=== PATIENT | male | born 1995 | race Caucasian/White ===

== ENCOUNTER 2017-03-14 22:43 | Emergency (ER) | payer BC ==
[2017-03-14] MEDS ORDERED: Sodium Chloride 0.9% 10 ML Syringe FLUSH PRN (23:14)
[2017-03-14] MEDS ORDERED: Sodium Chloride 0.9% 2.5 ML Syringe FLUSH PRN (23:14)
[2017-03-14] MEDS ORDERED: Ketorolac 30 MG/ML SDV IVPUSH ONE (23:15)
--- NOTE | 2017-03-14 23:18 | EDM.PDOC ---
ED HPI GENERAL MEDICAL PROBLEM - General Chief Complaint: General Stated Complaint: TOOTH PAIN/RT EYE Time Seen by Provider: 03/14/17 23:03 - History of Present Illness INITIAL COMMENTS - FREE TEXT/NARRATIVE: HISTORY AND PHYSICAL: History of present illness: The patient is a healthy 21-year-old male who presents with complaints of persistent pain at his right upper tooth area and new swelling to his right eye area. The patient has seen the dentist the last 2 days and was giving an antibiotic rinse that he is using and they did x-rays and they were concerned about the right central incisor. The patient is also currently on antibiotics that he started today and has only taken one dose which he received from Dr. Jass Grant --- although he did not see the physician they were called in for him. The patient presents tonight saying that he has had the discomfort for several days, 3 days, more in the tooth and now he has the swelling of his periorbital area and he is concerned. He has had no fever chills cough chest pain or shortness of breath no nausea no vomiting. He has no difficulty eating and drinking and he has no neck pain. No visual changes in his eye and no gross drainage from the eye. He does not wear glasses or contact lenses. He doesn't have a foreign body sensation in his eye. He does not have any headache whatsoever just pain at the tooth area which she feels is now behind his right eye. Review of systems: As per history of present illness and below otherwise all systems reviewed and negative. Past medical history: As per history of present illness and as reviewed below otherwise noncontributory. Surgical history: As per history of present illness and as reviewed below otherwise noncontributory. Social history: No reported history of drug or alcohol abuse. Family history: As per history of present illness and as reviewed below otherwise noncontributory. Physical exam: Gen.: Well-developed well-nourished man who is nontoxic and vital signs of been reviewed by me. HEENT: Atraumatic, normocephalic, pupils reactive, EOMs are intact, he is not photophobic, his sclera is injected on the right, negative for conjunctival pallor or scleral icterus, mucous membranes moist, throat clear, neck supple, nontender, trachea midline. There is no cervical adenopathy or nuchal rigidity. There are no exudates and the uvula is midline but the soft palate is grossly erythematous with a few punctate ulcerations seen. Speech is intact. There is no gross to the DKA or caries seen but there is some minimal tenderness of the gum area surrounding the right central incisor without fluctuance swelling or abnormalities. Lungs: Clear to auscultation, breath sounds equal bilaterally, chest nontender. Heart: S1S2, regular, rate and rhythm no overt murmurs Abdomen: Soft, nondistended, nontender. NABS Negative for costovertebral tenderness. Genitourinary: Deferred. Rectal: Deferred. Extremities: Atraumatic, negative for cords or calf pain. Neurovascular unremarkable. Neuro: Awake, alert, oriented. Cranial nerves II through XII unremarkable. Cerebellum unremarkable. Motor and sensory unremarkable throughout. Exam nonfocal. Diagnostics: CBC CMP lactic acid visual acuity CT scan of the maxillofacial area Visual acuity was 20/25 in each eye individually as well as together. Therapeutics: IV, Toradol Rocephin I rediscussed all testing results with the patient and friend at bedside. The patient insists that he had no trauma to his face he did not have any bites or anything in the area of the right zygomatic region he is aware there is no evidence of any abscess or fluid collection and that that would be treated with antibiotics and close follow-up. The patient is unsure of what antibiotic he is on at home so I've advised him to take a prescription for Augmentin that they have written him and if the antibiotic at home is not Augmentin that he needs to fill it and start taking it. I have also given him [facility] for tobramycin ophthalmic drops and tramadol for pain. I advised very close follow-up with either Dr. Grant in the clinic or one of our physicians and reasons to return to the ED. I also advised ice to the area. I will give one dose of Rocephin here Impression: Right facial cellulitis Definitive disposition and diagnosis as appropriate pending reevaluation and review of above. Right Tooth/Teeth Pain Score (Numeric/FACES): 8 - Related Data Allergies Allergy/AdvReac Type Severity Reaction Status Date / Time No Known Allergies Allergy Verified 03/14/17 22:57 Home Meds: Home Meds . [No Known Home Meds] 01/08/16 [History] Past Medical History - Past Health History Medical/Surgical History: Denies Medical/Surgical History Social & Family History - Family History Family Medical History: Noncontributory - Tobacco Use Smoking Status *Q: Never Smoker Second Hand Smoke Exposure: No - Caffeine Use Caffeine Use: Reports: Soda Caffeine Use Comment: 1drink/day - Recreational Drug Use Recreational Drug Use: No ED ROS GENERAL - Review of Systems Review Of Systems: ROS reveals no pertinent complaints other than HPI. ED EXAM, GENERAL - Physical Exam Exam: See Below (See dictation) Course - Vital Signs Last Recorded V/S: Last Vital Signs Temp 36.7 C 03/14/17 22:54 Pulse 87 03/14/17 22:54 Resp 18 03/14/17 22:54 BP 136/87 03/14/17 22:54 Pulse Ox 97 03/14/17 22:54 - Orders/Labs/Meds Orders: Active Orders 24 hr Category Date Time Status Communication Order [RC] STAT Care 03/14/17 23:11 Active Max Facial Sinus w Cont [CT] Stat Exams 03/14/17 01:42 Taken Sodium Chloride 0.9% [Saline Flush] Med 03/14/17 23:14 Active 10 ml FLUSH ASDIRECTED PRN Sodium Chloride 0.9% [Saline Flush] Med 03/14/17 23:14 Active 2.5 ml FLUSH ASDIRECTED PRN cefTRIAXone [Rocephin in Dextrose,Iso-Osm 1 GM/50 ML] 1 Med 03/15/17 01:53 Ordered gm Premix Bag 1 bag IV ONETIME Saline Lock Insert [OM.PC] Stat Oth 03/14/17 23:12 Ordered Medication Orders Ceftriaxone Sodium/Dextrose 1 (gm/ Premix) 50 mls @ 100 mls/hr IV ONETIME ONE Stop: 03/15/17 02:22 Sodium Chloride (Saline Flush) 10 ml FLUSH ASDIRECTED PRN PRN Reason: Keep Vein Open Sodium Chloride (Saline Flush) 2.5 ml FLUSH ASDIRECTED PRN PRN Reason: Keep Vein Open Labs: Laboratory Tests 03/14/17 03/14/17 03/14/17 Range/Units 23:44 23:44 23:44 WBC 6.32 (4.0-11.0) K/uL RBC 4.95 (4.50-5.90) M/uL Hgb 14.7 (13.0-17.0) g/dL Hct 42.8 (38.0-50.0) % MCV 86.5 (80.0-98.0) fL MCH 29.7 (27.0-32.0) pg MCHC 34.3 (31.0-37.0) g/dL RDW Std Deviation 40.7 (28.0-62.0) fl RDW Coeff of Jyoti 13 (11.0-15.0) % Plt Count 160 (150-400) K/uL MPV 10.40 (7.40-12.00) fL Neut % (Auto) 66.2 (48.0-80.0) % Lymph % (Auto) 21.8 (16.0-40.0) % [place] % (Auto) 9.3 (0.0-15.0) % Eos % (Auto) 2.2 (0.0-7.0) % Baso % (Auto) 0.5 (0.0-1.5) % Neut # (Auto) 4.2 (1.4-5.7) K/uL Lymph # (Auto) 1.4 (0.6-2.4) K/uL [place] # (Auto) 0.6 (0.0-0.8) K/uL Eos # (Auto) 0.1 (0.0-0.7) K/uL Baso # (Auto) 0.0 (0.0-0.1) K/uL Nucleated RBC % 0.0 /100WBC Nucleated RBCs # 0 K/uL Lactate 0.7 (0.20-2.00) mmol/L Sodium 139 (136-146) mmol/L Potassium 3.7 (3.5-5.1) mmol/L Chloride 104 (98-110) mmol/L Carbon Dioxide 27 (21-31) mmol/L BUN 12 (6.0-23.0) mg/dL Creatinine 1.0 (0.6-1.5) mg/dL Est Cr Clr Drug Dosing TNP Estimated GFR (MDRD) > 60.0 ml/min Glucose 121 H (60-110) mg/dL Calcium 9.4 (8.8-10.8) mg/dL Total Bilirubin 0.6 (0.1-1.5) mg/dL AST 25 (5-40) IU/L ALT 23 (8-54) IU/L Alkaline Phosphatase 61 L (125-750) Total Protein 6.9 (6.0-8.0) g/dL Albumin 4.3 (3.5-5.0) g/dL Globulin 2.6 (2.0-3.5) g/dL Albumin/Globulin Ratio 1.7 (1.3-2.8) Meds: Medications Generic Name Dose Route Start Last Admin Trade Name Freq PRN Reason Stop Dose Admin Ceftriaxone Sodium/Dextrose 1 50 mls @ 100 mls/hr 03/15/17 01:53 gm/ Premix IV 03/15/17 02:22 ONETIME ONE Sodium Chloride 10 ml 03/14/17 23:14 Saline Flush FLUSH ASDIRECTED PRN Keep Vein Open Sodium Chloride 2.5 ml 03/14/17 23:14 Saline Flush FLUSH ASDIRECTED PRN Keep Vein Open Discontinued Medications Generic Name Dose Route Start Last Admin Trade Name Freq PRN Reason Stop Dose Admin Iopamidol 75 ml 03/15/17 01:45 03/15/17 01:46 Isovue Multipack-370 (76%) IVPUSH 03/15/17 01:46 75 ml ONETIME STA Administration Ketorolac Tromethamine 30 mg 03/14/17 23:15 03/14/17 23:28 Toradol IVPUSH 03/14/17 23:16 30 mg ONETIME ONE Administration Departure - Departure Time of Disposition: 01:58 Disposition: Home, Self-Care 01 Condition: Good Clinical Impression: Facial cellulitis - Discharge Information Forms: ED Department Discharge Additional Instructions: The following information is given to patients seen in the emergency department who are being discharged to home. This information is to outline your options for follow-up care. We provide all patients seen in our emergency department with a follow-up referral. The need for follow-up, as well as the timing and circumstances, are variable depending upon the specifics of your emergency department visit. If you don't have a primary care physician on staff, we will provide you with a referral. We always advise you to contact your personal physician following an emergency department visit to inform them of the circumstance of the visit and for follow-up with them and/or the need for any referrals to a consulting specialist. The emergency department will also refer you to a specialist when appropriate. This referral assures that you have the opportunity for followup care with a specialist. All of these measure are taken in an effort to provide you with optimal care, which includes your followup. Under all circumstances we always encourage you to contact your private physician who remains a resource for coordinating your care. When calling for followup care, please make the office aware that this follow-up is from your recent emergency room visit. If for any reason you are refused follow-up, please contact the [facility] emergency department at and ask to speak to the emergency department charge nurse. [address] [place] [address] [facility] Primary care- Internal Medicine and Family [address] [address] Use ice to face to reduce swelling and use medications [facility] --- tobramycin eyedrops and tramadol for pain. He may also use [id number] Tylenol or ibuprofen for pain. Please go home and check the antibiotics you have prescribed by Dr. Grant and if it is not Augmentin please fill the prescription your given and start the new antibiotic. If the prescription you have at home is Augmentin start the prescription I gave you here and continue with that antibiotic. Please call and schedule follow-up at either [facility] or our clinic Friday or Friday and return here as needed and as discussed. - My Orders Last 24 Hours: My Active Orders 03/14/17 01:42 Max Facial Sinus w Cont [CT] Stat 03/14/17 23:11 Communication Order [RC] STAT 03/14/17 23:12 Saline Lock Insert [OM.PC] Stat 03/14/17 23:14 Sodium Chloride 0.9% [Saline Flush] 10 ml FLUSH ASDIRECTED PRN Sodium Chloride 0.9% [Saline Flush] 2.5 ml FLUSH ASDIRECTED PRN 03/15/17 01:53 cefTRIAXone [Rocephin in Dextrose,Iso-Osm 1 GM/50 ML] 1 gm Premix Bag 1 bag IV ONETIME - Assessment/Plan Last 24 Hours: My Active Orders 03/14/17 01:42 Max Facial Sinus w Cont [CT] Stat 03/14/17 23:11 Communication Order [RC] STAT 03/14/17 23:12 Saline Lock Insert [OM.PC] Stat 03/14/17 23:14 Sodium Chloride 0.9% [Saline Flush] 10 ml FLUSH ASDIRECTED PRN Sodium Chloride 0.9% [Saline Flush] 2.5 ml FLUSH ASDIRECTED PRN 03/15/17 01:53 cefTRIAXone [Rocephin in Dextrose,Iso-Osm 1 GM/50 ML] 1 gm Premix Bag 1 bag IV ONETIME
[2017-03-15 00:15] LABS: CHLORIDE,CL 104 mmol/L (98-110); SODIUM,NA 139 mmol/L (136-146)
[2017-03-15] MEDS ORDERED: Iopamidol 755 MG/ML 500 ML Multipack Bottle IVPUSH STA (01:45)
[2017-03-15] MEDS ORDERED: cefTRIAXone 1 GM in Premix Bag 1 BAG IV ONE (01:53)
[2017-03-15 02:49] VITALS: BP 119/77
--- NOTE | 2017-03-17 10:51 | CT ---
EXAM DATE: 03/14/17 PATIENT'S AGE: 21 Patient: NAUN BATEMAN Facility: [place], [place] Site . Site : 1995 Study: CT Facial [id number]/[id number] 1:12:49 AM Ordering Physician: Alon Fay Final Report: INDICATION: Toothache x3 days. Redness. Swelling right eye. Fever. TECHNIQUE: CT maxillofacial with 75 mL of Isovue 370 IV contrast. COMPARISON: None. FINDINGS: Facial bones: No acute facial fracture. Reformatted imaging demonstrates intact bilateral orbital floors. The mandible and bilateral temporomandibular joints are intact. No CT evidence of underlying dental disease. Orbits and globes: Bilateral globes, extra-ocular muscles and orbits are unremarkable. Sinuses: No acute or significant findings. Soft tissues: Mild heterogeneous soft tissue swelling and fat stranding in the right zygomatic region. No drainable fluid collection. Bilateral borderline lymphadenopathy. IMPRESSION: Findings worrisome for cellulitis in the right zygomatic region. No evidence of abscess. Bilateral borderline lymphadenopathy may be reactive. No acute or suspicious osseous abnormality. Dictated by Jamal Ivory MD @ 03/15/2017 1:36:56 AM Dictated by: Jamal Ivory MD @ 03/15/2017 01:37:07 (Electronic Signature) Report Signed by Proxy. [facility]
== END 2017-03-15 02:40 | disposition home or self-care (01) ==
LOC: MW.ED 22:43
DX: L03.211 Cellulitis of face (principal)
CPT/HCPCS: 36415; 70487; 80053; 83605; 85025; 96365; 96375; 99284; J0696; J1885; Q9967; 99283

== ENCOUNTER 2017-03-15 12:45 | Emergency (ER) | payer BC ==
--- NOTE | 2017-03-15 13:15 | EDM.PDOC ---
ED HPI GENERAL MEDICAL PROBLEM - General Chief Complaint: General Stated Complaint: NAUSEA/VOMITING Time Seen by Provider: 03/15/17 13:20 Source of Information: Reports: Patient, Family History Limitations: Reports: No Limitations - History of Present Illness INITIAL COMMENTS - FREE TEXT/NARRATIVE: HISTORY AND PHYSICAL: History of present illness: [Patient comes to the emergency room complaining of nausea and vomiting. He was seen in the emergency room last night and treated for right facial cellulitis. He was given a gram of Rocephin in the ER. Toradol and tobramycin ophthalmic solution were filled through [facility]. He did not fill his prescription for Augmentin nor did he take any antibiotics this morning. Patient got home from the ER around 4 AM and woke up at 11 AM at which time he had 2 episodes of vomiting. He's felt feverish and complains of a headache for which he presents to the ER today. States that his eye and right lips are more swollen today than yesterday. Denies blurred vision and double vision. No runny nose or drainage from his years. Denies sore throat. No chest pain shortness of breath or difficulty breathing. No worsened pain or headache from ER visit of last night, but has had no improvement in his symptoms. Patient's mom and girlfriend are at the bedside.] Review of systems: As per history of present illness and below otherwise all systems reviewed and negative. Past medical history: As per history of present illness and as reviewed below otherwise noncontributory. Surgical history: As per history of present illness and as reviewed below otherwise noncontributory. Social history: No reported history of drug or alcohol abuse. Family history: As per history of present illness and as reviewed below otherwise noncontributory. Physical exam: Gen.: Well-developed, well-nourished male in no acute distress. He appears to not be feeling well, but certainly appears nontoxic. HEENT: Atraumatic, normocephalic. Neck is supple. No anterior or posterior cervical lymphadenopathy is appreciated. No rigidity. No crepitus palpated over his right face. TMs are pearly [place]man without erythema or effusion. Nares are patent and without erythema or bogginess. Right conjunctiva injected. Right upper eyelid is nearly swollen shut. PERRLA. EOMI. Right upper lip is swollen with fever blisters developing. No oral lesions are noted. Oral mucous membranes are otherwise pink and moist. No tonsillar swelling erythema or exudate. Lungs: Clear to auscultation, breath sounds equal bilaterally. Heart: S1S2, regular rate and rhythm. Abdomen: Soft, nondistended, nontender. Negative for guarding or rebound. Pelvis: Stable nontender. Genitourinary: Deferred. Rectal: Deferred. Extremities: Atraumatic, ambulates without difficulty. Neurovascular unremarkable. Neuro: Awake, alert, oriented. Motor and sensory unremarkable throughout. Exam nonfocal. Diagnostics: [CBC, lactic acid, blood cultures] Therapeutics: [1 L normal saline, clindamycin 900 mg IV, Zofran 4 mg IV, Toradol 30 mg IV] Impression: [Right facial cellulitis] Plan: [Patient is given clindamycin 900 mg IV in the ER. His nausea resolves completely with Zofran 4 mg IV. 1 L of normal saline is given. Patient states that he feels improved following Toradol and IV fluids. CBC shows white blood cell count of 6.48 and lactate 0.7. One tablet of hydrocodone 5/325 given in ER He is discharged from the emergency room with instructions to take clindamycin 300 mg by mouth every 6 hours for the next 10 days. Continue tramadol and eyedrops as previously prescribed. Patient states that he has hydrocodone at home from previous ER visit that he can take for pain. Recommend close follow- up with primary care early next week. Patient is in agreement with today's plan. ] Definitive disposition and diagnosis as appropriate pending reevaluation and review of above. head Pain Score (Numeric/FACES): 10 - Related Data Allergies Allergy/AdvReac Type Severity Reaction Status Date / Time No Known Allergies Allergy Verified 03/14/17 22:57 Home Meds: Home Meds Clindamycin HCl 300 mg PO QID #40 capsule 03/15/17 [Rx] Past Medical History - Past Health History Medical/Surgical History: Denies Medical/Surgical History Social & Family History - Family History Family Medical History: Noncontributory - Tobacco Use Smoking Status *Q: Never Smoker Second Hand Smoke Exposure: No - Caffeine Use Caffeine Use: Reports: Soda Caffeine Use Comment: 1drink/day - Recreational Drug Use Recreational Drug Use: No ED ROS GENERAL - Review of Systems Review Of Systems: ROS reveals no pertinent complaints other than HPI. ED EXAM, GENERAL - Physical Exam Exam: See Below Course - Vital Signs Last Recorded V/S: Last Vital Signs Temp 100.3 F 03/15/17 13:05 Pulse 68 03/15/17 18:15 Resp 18 03/15/17 18:15 BP 136/72 03/15/17 18:15 Pulse Ox 93 L 03/15/17 18:15 - Orders/Labs/Meds Orders: Active Orders 24 hr Category Date Time Status CULTURE BLOOD [BC] Stat Lab 03/15/17 13:43 Received CULTURE BLOOD [BC] Stat Lab 03/15/17 14:13 Received Blood Culture x2 Reflex Set [OM.PC] Stat Oth 03/15/17 13:31 Ordered Labs: Laboratory Tests 03/15/17 03/15/17 Range/Units 13:43 13:43 WBC 6.48 (4.0-11.0) K/uL RBC 5.01 (4.50-5.90) M/uL Hgb 14.9 (13.0-17.0) g/dL Hct 43.1 (38.0-50.0) % MCV 86.0 (80.0-98.0) fL MCH 29.7 (27.0-32.0) pg MCHC 34.6 (31.0-37.0) g/dL RDW Std Deviation 39.8 (28.0-62.0) fl RDW Coeff of Jyoti 13 (11.0-15.0) % Plt Count 146 L (150-400) K/uL MPV 10.60 (7.40-12.00) fL Neut % (Auto) 78.1 (48.0-80.0) % Lymph % (Auto) 11.1 L (16.0-40.0) % [place] % (Auto) 9.4 (0.0-15.0) % Eos % (Auto) 0.9 (0.0-7.0) % Baso % (Auto) 0.5 (0.0-1.5) % Neut # (Auto) 5.1 (1.4-5.7) K/uL Lymph # (Auto) 0.7 (0.6-2.4) K/uL [place] # (Auto) 0.6 (0.0-0.8) K/uL Eos # (Auto) 0.1 (0.0-0.7) K/uL Baso # (Auto) 0.0 (0.0-0.1) K/uL Nucleated RBC % 0.0 /100WBC Nucleated RBCs # 0 K/uL Lactate 0.7 (0.20-2.00) mmol/L Meds: Medications Discontinued Medications Generic Name Dose Route Start Last Admin Trade Name Freq PRN Reason Stop Dose Admin Hydrocodone Bitart/Acetaminophen 1 tab 03/15/17 17:25 03/15/17 17:53 [place] 325-5 Mg PO 03/15/17 17:26 1 tab ONETIME ONE Administration Clindamycin Phosphate 900 mg/ 50 mls @ 100 mls/hr 03/15/17 13:30 03/15/17 14: 19 Premix IV 03/15/17 13:59 100 mls/hr ONETIME ONE Administration Sodium Chloride 1,000 mls @ 999 mls/hr 03/15/17 13:30 03/15/17 14:17 Normal Saline IV 03/15/17 14:30 999 mls/hr STAT ONE Administration Ketorolac Tromethamine 30 mg 03/15/17 14:15 03/15/17 15:01 Toradol IVPUSH 03/15/17 14:16 30 mg ONETIME ONE Administration Ondansetron HCl 4 mg 03/15/17 13:52 03/15/17 14:17 Zofran IVPUSH 03/15/17 13:53 4 mg ONETIME ONE Administration Departure - Departure Time of Disposition: 17:25 Disposition: Home, Self-Care 01 Condition: Good Clinical Impression: Facial cellulitis - Discharge Information Prescriptions: Clindamycin HCl 300 mg PO QID #40 capsule Instructions: Cellulitis, Adult, [id number] Referrals: PCP,None [Primary Care Provider] - Forms: ED Department Discharge Additional Instructions: The following information is given to patients seen in the emergency department who are being discharged to home. This information is to outline your options for follow-up care. We provide all patients seen in our emergency department with a follow-up referral. The need for follow-up, as well as the timing and circumstances, are variable depending upon the specifics of your emergency department visit. If you don't have a primary care physician on staff, we will provide you with a referral. We always advise you to contact your personal physician following an emergency department visit to inform them of the circumstance of the visit and for follow-up with them and/or the need for any referrals to a consulting specialist. The emergency department will also refer you to a specialist when appropriate. This referral assures that you have the opportunity for follow-up care with a specialist. All of these measure are taken in an effort to provide you with optimal care, which includes your follow-up. Under all circumstances we always encourage you to contact your private physician who remains a resource for coordinating your care. When calling for follow-up care, please make the office aware that this follow-up is from your recent emergency room visit. If for any reason you are refused follow-up, please contact the [facility] emergency department at and asked to speak to the emergency department charge nurse. [facility] Primary Care [address] [place] [id number] Follow-up with your primary care provider at the clinic listed above in 48 hours. Take clindamycin every 6 hours until all taken. You may take Tylenol or ibuprofen as needed for pain or fever. You may take hydrocodone as needed for moderate to severe pain. Do not take hydrocodone with Tylenol as hydrocodone already has Tylenol in it. Return to ER as needed as discussed. - My Orders Last 24 Hours: My Active Orders 03/15/17 13:31 Blood Culture x2 Reflex Set [OM.PC] Stat 03/15/17 13:43 CULTURE BLOOD [BC] Stat 03/15/17 14:13 CULTURE BLOOD [BC] Stat - Assessment/Plan Last 24 Hours: My Active Orders 03/15/17 13:31 Blood Culture x2 Reflex Set [OM.PC] Stat 03/15/17 13:43 CULTURE BLOOD [BC] Stat 03/15/17 14:13 CULTURE BLOOD [BC] Stat
[2017-03-15] MEDS ORDERED: Clindamycin Phosphate in D5W 900 MG in Premix Bag 1 BAG IV ONE ×2 (13:30)
[2017-03-15] MEDS ORDERED: Sodium Chloride 0.9% 1,000 ML IV ONE (13:30)
[2017-03-15] MEDS ORDERED: Ondansetron 4 MG/2 ML SDV IVPUSH ONE (13:52)
[2017-03-15] MEDS ORDERED: Ketorolac 30 MG/ML SDV IVPUSH ONE (14:15)
[2017-03-15] MEDS ORDERED: Acetaminophen/HYDROcodone 325-5 MG Tab PO ONE (17:25)
[2017-03-15 20:50] VITALS: BP 136/72
== END 2017-03-15 18:15 | disposition home or self-care (01) ==
LOC: MW.ED 12:45
DX: L03.211 Cellulitis of face (principal)
CPT/HCPCS: 36415; 83605; 85025; 87040; 96361; 96365; 96375; 99284; A9270; J1885; J2405; J7040

== ENCOUNTER 2018-09-15 12:48 | Emergency (ER) | payer SELFPAY ==
[2018-09-15 13:16] VITALS: BP 137/94
[2018-09-15] MEDS ORDERED: Diphtheria,Pertussis(Acell),Tetanus Vaccine 0.5 ML Syringe IM ONE (13:33)
--- NOTE | 2018-09-15 13:35 | EDM.PDOC ---
ED HPI GENERAL MEDICAL PROBLEM - General Chief Complaint: Upper Extremity Injury/Pain Stated Complaint: LEFT THUMB CUT BY UI DEVELOPER Time Seen by Provider: 09/15/18 12:54 Source of Information: Reports: Patient History Limitations: Reports: No Limitations - History of Present Illness INITIAL COMMENTS - FREE TEXT/NARRATIVE: HISTORY AND PHYSICAL: History of present illness: Patient is a 22-year-old male who presents to the emergency room with complaints of left thumb injury with a finish grinder. He does have a injury noted to the bottom of the nailbed. No current bleeding noted. Mom states that his tetanus has not been updated in the past 5 years and would like this updated today. He denies any numbness or tingling to the affected extremity. Appears to have no tendon involvement. Review of systems: As per history of present illness and below otherwise all systems reviewed and negative. Past medical history: As per history of present illness and as reviewed below otherwise noncontributory. Surgical history: As per history of present illness and as reviewed below otherwise noncontributory. Social history: See social history for further information Family history: As per history of present illness and as reviewed below otherwise noncontributory. Physical exam: General: Well-developed and well-nourished 22-year-old male. Alert and oriented. Nontoxic appearing and in no acute distress. HEENT: Atraumatic, normocephalic, pupils equal and reactive bilaterally, negative for conjunctival pallor or scleral icterus, mucous membranes moist, TMs normal bilaterally, throat clear, neck supple, nontender, trachea midline. No drooling or trismus noted. No meningeal signs. No hot potato voice noted. Lungs: Clear to auscultation, breath sounds equal bilaterally, chest nontender. Heart: S1S2, regular rate and rhythm without overt murmur Abdomen: Soft, nondistended, nontender. Negative for masses or hepatosplenomegaly. Negative for costovertebral tenderness. Pelvis: Stable nontender. Genitourinary: Deferred. Rectal: Deferred. Skin: A small 0.25cm triangle shaped puncture wound to the medial aspect of nail along the base. Otherwise skin is intact, warm, dry. No lesions or rashes noted. Extremities: Injury of left thumb. Appears to have no tendon involvement. Moves all per self, negative for cords or calf pain. Neurovascular unremarkable. Neuro: Awake, alert, oriented. Cranial nerves II through XII unremarkable. Cerebellum unremarkable. Motor and sensory unremarkable throughout. Exam nonfocal. Notes: Area was anesthetized with 1% lidocaine (allergy was reviewed with patient) cleansed with chlorhexidine soft brush. Unable to suture anything at this time as there is a small avulsion of the nail at the medial aspect of the base. Area was cleansed and bacitracin nonstick/bulky dressing applied. We'll place the patient on Keflex prophylactically and give medication for pain. Supportive care measures were reviewed and discussed. Both patient and mother voice understanding and are agreeable to plan of care. Denies any further questions or concerns at this time. Diagnostics: X-ray Therapeutics: 1% Lidocaine, Tdap Prescription: Keflex [place] (#[id number]) Impression: Left Thumb Injury Puncture wound, left thumb Plan: 1. Please wash twice daily with mild soap and water. Keep the area clean and dry. Continue to monitor for signs of improvement. 2. Tylenol and/or ibuprofen as needed for pain management. [place] for moderate to severe pain. This medication may cause drowsiness a do not take it will driving her needing to be functioning outside of the house. 3. Please follow-up with your primary care provider in the next 1-2 days. Return to the ED as needed and as discussed. Definitive disposition and diagnosis as appropriate pending reevaluation and review of above. Onset: Today Left Finger-Thumb Pain Score (Numeric/FACES): 11 - Related Data Allergies Allergy/AdvReac Type Severity Reaction Status Date / Time lidocaine [From Emla] Allergy Rash Verified 09/15/18 13:16 prilocaine [From Emla] Allergy Rash Verified 09/15/18 13:16 Home Meds: Home Meds . [No Known Home Meds] 09/15/18 [History] Past Medical History - Past Health History Medical/Surgical History: Denies Medical/Surgical History - Infectious Disease History Infectious Disease History: Reports: Chicken Pox, Shingles Social & Family History - Family History Family Medical History: Noncontributory - Tobacco Use Smoking Status *Q: Light Tobacco Smoker Years of Tobacco use: 7 Packs/Tins Daily: 0.3 - Caffeine Use Caffeine Use: Reports: Soda Caffeine Use Comment: 1drink/day - Recreational Drug Use Recreational Drug Use: No Review of Systems - Review of Systems Review Of Systems: ROS reveals no pertinent complaints other than HPI. ED EXAM, GENERAL - Physical Exam Exam: See Below (See dictation) Course - Vital Signs Last Recorded V/S: Last Vital Signs Temp 98.3 F 09/15/18 13:11 Pulse 79 09/15/18 13:11 Resp 18 09/15/18 13:11 BP 137/94 H 09/15/18 13:11 Pulse Ox 99 09/15/18 13:11 - Orders/Labs/Meds Orders: Active Orders 24 hr Category Date Time Status Communication Order [RC] STAT Care 09/15/18 14:12 Active Vaccines to be Administered [RC] PER UNIT ROUTINE Care 09/15/18 13:33 Active Meds: Medications Discontinued Medications Generic Name Dose Route Start Last Admin Trade Name Francisco PRN Reason Stop Dose Admin Bacitracin 1 dose 09/15/18 14:12 09/15/18 14:23 Bacitracin Oint 1 Gm TOP 09/15/18 14:13 1 dose ONETIME ONE Administration Diphtheria/Tetanus/Acell Pertussis 0.5 ml 09/15/18 13:33 09/15/18 13:46 Adacel IM 09/15/18 13:34 0.5 ml .ONCE ONE Administration Lidocaine HCl 5 ml 09/15/18 12:54 09/15/18 13:35 Xylocaine-Mpf 1% INJECT 09/15/18 12:55 5 ml ONETIME ONE Administration Departure - Departure Time of Disposition: 14:15 Disposition: Home, Self-Care 01 Clinical Impression: Puncture wound Injury of thumb, left Qualifiers: Encounter type: initial encounter Qualified Code(s): S69.92XA - Unspecified injury of left wrist, hand and finger(s), initial encounter - Discharge Information Instructions: Crush Injury of the Hand, [id number] Referrals: Jass Grant MD [Primary Care Provider] - Forms: ED Department Discharge Additional Instructions: The following information is given to patients seen in the emergency department who are being discharged to home. This information is to outline your options for follow-up care. We provide all patients seen in our emergency department with a follow-up referral. The need for follow-up, as well as the timing and circumstances, are variable depending upon the specifics of your emergency department visit. If you don't have a primary care physician on staff, we will provide you with a referral. We always advise you to contact your personal physician following an emergency department visit to inform them of the circumstance of the visit and for follow-up with them and/or the need for any referrals to a consulting specialist. The emergency department will also refer you to a specialist when appropriate. This referral assures that you have the opportunity for follow-up care with a specialist. All of these measure are taken in an effort to provide you with optimal care, which includes your follow-up. Under all circumstances we always encourage you to contact your private physician who remains a resource for coordinating your care. When calling for follow-up care, please make the office aware that this follow-up is from your recent emergency room visit. If for any reason you are refused follow-up, please contact the [facility] Emergency Department at and asked to speak to the emergency department charge nurse. [facility] [address] [place] [id number] [facility] [address] [place] [address] 1. Please wash twice daily with mild soap and water. Keep the area clean and dry. Continue to monitor for signs of improvement. 2. Tylenol and/or ibuprofen as needed for pain management. [place] for moderate to severe pain. This medication may cause drowsiness a do not take it will driving her needing to be functioning outside of the house. 3. Please follow-up with your primary care provider in the next 1-2 days. Return to the ED as needed and as discussed. - My Orders Last 24 Hours: My Active Orders 09/15/18 13:33 Vaccines to be Administered [RC] PER UNIT ROUTINE 09/15/18 14:12 Communication Order [RC] STAT - Assessment/Plan Last 24 Hours: My Active Orders 09/15/18 13:33 Vaccines to be Administered [RC] PER UNIT ROUTINE 09/15/18 14:12 Communication Order [RC] STAT
--- NOTE | 2018-09-15 14:10 | CR ---
EXAMINATION: Left thumb HISTORY: Injury COMPARISON: None TECHNIQUE: 3 views FINDINGS/IMPRESSION: There is no acute osseous abnormality, dislocation, or fracture. Bone mineralization and joint spaces are preserved.
[2018-09-15] MEDS ORDERED: Bacitracin Oint 1 GM U/D Packet TOP ONE (14:12)
== END 2018-09-15 14:32 | disposition home or self-care (01) ==
LOC: MW.ED 12:48
DX: S61.132A Puncture wound without foreign body of left thumb with damage to nail, initial encounter (principal); F17.210 Nicotine dependence, cigarettes, uncomplicated; Z88.8 Allergy status to other drugs, medicaments and biological substances; Z23 Encounter for immunization; W31.89XA Contact with other specified machinery, initial encounter
CPT/HCPCS: 73140-26-FA; 73140-FA; 90471; 90715; 99283-25

== ENCOUNTER 2022-12-30 19:55 | Emergency (ER) | payer OTHER ==
[2022-12-30 21:13] VITALS: BP 122/76; PULSE 82
== END 2022-12-30 21:12 | disposition home or self-care (01) ==
LOC: MW.ED 19:55
DX: S61.012A Laceration without foreign body of left thumb without damage to nail, initial encounter (principal); Z88.6 Allergy status to analgesic agent; W45.8XXA Other foreign body or object entering through skin, initial encounter
CPT/HCPCS: 12001; 99282